=== PATIENT | male | born 1990 | race Caucasian/White ===

== ENCOUNTER 2019-02-22 16:12 | Emergency (ER) | payer MEDICAID ==
[~2019-02-22] VITALS: Ht 182.9 cm; Wt 79.5 kg
[2019-02-22 16:17] VITALS: BP 156/89
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
--- NOTE | 2019-02-22 16:31 | NUR ---
Dr. Lizama is evaluating the patient at bedside.
--- NOTE | 2019-02-22 16:38 | NUR ---
RIGHT FOOT X-RAY DONE.
[2019-02-22 17:40] VITALS: BP 156/89
== END 2019-02-22 17:39 | disposition home or self-care (01) ==
LOC: MED 16:12
DX: M25.571 Pain in right ankle and joints of right foot (principal); X58.XXXA Exposure to other specified factors, initial encounter; Y93.89 Activity, other specified; Y92.89 Other specified places as the place of occurrence of the external cause; Y99.8 Other external cause status
CPT/HCPCS: 29515; 73610; 99283; Q0092

== ENCOUNTER 2020-07-11 11:05 | Emergency (ER) | payer MEDICAID ==
[~2020-07-11] VITALS: Ht 167.6 cm; Wt 77.6 kg
[2020-07-11 11:16] VITALS: BP 139/83
--- NOTE | 2020-07-11 11:21 | NUR ---
Patient ambulated to bed 4. RN evaluating the patient at bedside.
[2020-07-11] MEDS ORDERED: MECLIZINE 25 MG TAB PO ONE (11:30)
--- NOTE | 2020-07-11 11:33 | NUR ---
30 Y/O M BIB SELF FROM HOME, PRESENTS TO ER WITH C/O DIZZINESS, HEADACHE X 1 WEEK. DENIES ANY PAIN AT THIS TIME, STATES THE AREA BEHIND HIS R EAR FELT "HEAVY". DENIES N&V. DENIES BLURRY VISION OR HEADACHE. PMH: NONE NKA MEDS: NONE
[2020-07-11] MEDS ORDERED: MECL-370 PO (12:06)
[2020-07-11] MEDS ORDERED: KETOROLAC 30 MG/ML VIAL IM ONE (12:45)
--- NOTE | 2020-07-11 13:08 | NUR ---
ERMD MADE AWARE OF MEDICATIONS NOT WORKING, ERMD IN ROOM ASESSING PT.
--- NOTE | 2020-07-11 13:15 | NUR ---
Dr. Jiang is reevaluating the patient at bedside.
[2020-07-11 13:35] VITALS: BP 139/83
== END 2020-07-11 13:35 | disposition home or self-care (01) ==
LOC: MED 11:05
DX: R42 Dizziness and giddiness (principal)
CPT/HCPCS: 96372; 99283; J1885; J8597